=== PATIENT | female | born 2000 | race Caucasian/White ===

== ENCOUNTER 2021-05-10 11:35 | Emergency (ER) | payer BC, OTHER ==
[2021-05-10 11:42] VITALS: BP 137/78; PULSE 83; TEMP 98.8; BMI 24.1
[2021-05-10] MEDS ORDERED: DIPHTH,PERTUSS(ACELL),TET VAC 0.5 ML VIAL IM ONE (11:46)
[2021-05-10] MEDS ORDERED: TETANUS AND DIPHTHERIA TOXOID 0.5 ML DISP.SYRIN IM ONE (11:50)
[2021-05-10] MEDS ORDERED: NAPROXEN 500 MG TABLET PO ONE (12:12)
[2021-05-10] MEDS ORDERED: DIPHTH,PERTUSS(ACELL),TET 0.5 ML DISP.SYRIN IM ONE (12:14)
[2021-05-10] MEDS ORDERED: NAPROXEN 500 MG TABLET ONE (12:14)
[2021-05-10 13:55] LABS: CALCIUM OXALATE CRYSTALS FEW /hpf (NONE SEEN); EPITHELIAL CELLS MODERATE /hpf
[2021-05-10] MEDS ORDERED: NITROFURANTOIN MACROCRYSTAL 50 MG CAPSULE (FP) ONE (13:58)
[2021-05-10] MEDS ORDERED: NITROFURANTOIN MACROCRYSTAL 50 MG CAPSULE (FP) PO SCH (14:00)
== END 2021-05-10 14:01 | disposition home or self-care (01) ==
LOC: FER 11:35
PROC: 3E0234Z Introduction of Serum, Toxoid and Vaccine into Muscle, Percutaneous Approach (ICD-10-PCS; principal; 2021-05-10)
DX: M25.512 Pain in left shoulder (principal); S46.002A Unspecified injury of muscle(s) and tendon(s) of the rotator cuff of left shoulder, initial encounter
CPT/HCPCS: 73030-TC-LT-FY; 81003; 81015; 87086; 99284-25

== ENCOUNTER 2024-10-16 09:21 | Emergency (ER) | payer BC ==
[2024-10-16 09:31] VITALS: BP 120/72; PULSE 92; RESP 16; TEMP 98.2; BMI 23.3
[2024-10-16] MEDS: SODIUM CHLORIDE FOR INHALATION 3 ML VIAL.NEB IH ONE (10:28)
== END 2024-10-16 10:59 | disposition home or self-care (01) ==
LOC: FER 09:21
DX: R05.3 Chronic cough (principal)
CPT/HCPCS: 71045-TC-FY; 99283-25